=== PATIENT | female | born 1975 | race Caucasian/White ===

== ENCOUNTER → 2016-10-23 | Outpatient (CLI) | payer OTHER ==
--- NOTE | 2016-10-24 06:26 | REP ---
Clinical: BRCA1 gene for oophorectomy. Technique: Transabdominal pelvic ultrasound followed by transvaginal examination for better evaluation of the endometrium and adnexa with color Doppler evaluation of the ovaries. Findings: Bladder is unremarkable and measures 10.6 x 7.7 x 7.2 cm . Normal anteverted uterus measures 9.3 x 5.2 x 5.7 cm . The endometrial complex measures 14 mm thickness. No discrete uterine or endometrial abnormalities are appreciated. Bilateral ovaries are normal in appearance and vascularity without evidence for torsion. Right ovary measures 2.2 x 2.8 x 2.1 cm ; R I = 0.67 . Left ovary measures 3.3 x 3.9 x 2.4 cm and includes 2.3 cm hemorrhagic physiologic cyst ; R I = 0.56 . Trace pelvic free fluid adjacent to the right ovary is nonspecific. No adnexal mass lesion. Impression: 1. Normal uterus with minimally increased endometrial thickness may be related to menstrual cycle. 2. 2.3 cm hemorrhagic cyst in the left ovary. Signed by Vinny Moreno MD 10/24/2016 06:18 A
== END ==
LOC: M RAD 09:49
PROVIDERS: ATTEND Family Medicine
DX: Z12.73 Encounter for screening for malignant neoplasm of ovary (principal); Z85.3 Personal history of malignant neoplasm of breast; N83.202 Unspecified ovarian cyst, left side